=== PATIENT | female | born 1990 | race Caucasian/White ===

== ENCOUNTER 2016-12-04 06:00 | Inpatient (IN) ==
--- NOTE | 2016-12-04 06:42 | OB/GYN History & Physical ---
Date of Encounter: 12/04/16 Time of Encounter: 06:37 Assessment and Plan (1) 39 weeks gestation of Current visit: Yes Status: Acute Admit to labor and delivery for induction of labor Plan to start with cytotec and advance to pitocin Will monitor mother and fetus Anticipate spontaneous vaginal delivery (2) Non-stress test reactive Current visit: Yes Status: Acute (3) High risk , antepartum Current visit: Yes Status: Acute (4) History of pre-eclampsia Current visit: Yes Status: Acute BP within normal limits On ASA (5) GBS (group B Streptococcus carrier), +RV culture, currently Current visit: Yes Status: Acute Patient is allergic to amoxicillin culture and sensitivity showed resistance to clindamycin will treat with vancomycin q12h (6) Penicillin allergy Current visit: Yes Status: Acute See plan of care above (7) Large for gestational age fetus affecting mother, antepartum, third trimester, single gestation Current visit: Yes Status: Acute (8) Obesity affecting in third trimester, antepartum Current visit: Yes Status: Acute (9) Morbid obesity due to excess calories Current visit: Yes Status: Acute History of Present Illness Chief complaint: Induction of Labor HPI: Harriett Hudson is a 26 year-old G 2 P 1001 female at 39 weeks and 1 day who presents to labor and delivery for induction of labor. Patient reports good movement. She has been having intermittent contractions, sometimes regular, sometimes irregular. Patient denies vaginal bleeding and loss of fluid. Patient denies nausea, vomiting, diarrhea, shortness of breath, chest pain, headache, visual disturbance, LE edema, and upper abdominal pain. The patient's has been complicated by a history of preeclampsia for which she is taking low dose ASA, obesity, and GBS. She was last seen in the office by Dr. Martino on 11/28/2016. Cervix was 3-4 cm dilated and 70% effaced. Station was -2. Blood type: O+ Rubella and Varicella Immune Hep B negative GBS positive. Patient is penicillin allergic, and C+S showed clindamycin resistance so prophylaxis will be with vancomycin. All other serologies negative Past Med Surg Social Fam HX - Family History Mother Age: 45 Living Status: Still Living Hx Family Cardiac Disorders: Yes (htm) Hx Family Cancer: No Hx Family GI Disorders: No Hx Family Genitourinary Disorders: No Hx Family Endocrine Disorder: Yes (diabetic) Hx Family Musculoskeletal Disorders: Yes (neuropathy) Hx Family Neuromuscular Disorders: No Hx Family Neurologic Disorders: No Hx Family HEENT Disorders: No Hx Family Autoimmune Disorders: No Hx Family Reproductive Disorders: No Hx Family Psychosocial Disorders: No Hx Family Medical Disorders: No Obstetrical History - Pregnancies : 2 Para: 1 Term: 1 : 0 Ab's: 0 Livin Medications and Allergies Aspirin 81 mg PO DAILY 12/04/16 [History] Formula Tablet 1 tab PO DAILY 12/04/16 [History] 3 Allergy/AdvReac Type Severity Reaction Status Date / Time Amoxicillin Allergy Unknown See Verified 12/04/16 07:48 Comments Review of System OB - Cardiovascular Cardiovascular: no chest pain, no dyspnea, no edema - Respiratory Respiratory: no dyspnea - Gastrointestinal Gastrointestinal: no diarrhea, no nausea, no vomiting Exam - Constitutional Constitutional: well developed, well nourished, no acute distress, obese - HEENT HEENT: Normocephaly, Mucus Membranes Moist - Neck Neck exam: trachea midline - Lungs Respiratory exam: CTAB - Cardiovascular Cardiovascular exam: RRR, +S1, +S2 - Abdomen Abdomen: Present: gravid, non tender - Extremities Extremities exam: normal inspection Deep Tendon Reflex Grade: 2+ Normal - Uterus Uterus exam: Present: normal size Results Result Diagrams: 12/04/16 07:22 All other labs normal. - VTE Reasons for not Prescribing Prophylaxis: Treatment not Indicated - Low risk for VTE - Attending Attestation I examined this patient and my medical decision-making was reviewed with the Resident Physician. I agree with the documented findings, disposition and treatment plan as described except to the extent set forth below.
[2016-12-04] MEDS ORDERED: Ondansetron 4 MG/2 ML VIAL IVP PRN (06:52)
[2016-12-04] MEDS ORDERED: Naloxone 0.4 MG/ML INJ IVP PRN (06:52)
[2016-12-04] MEDS ORDERED: Metoclopramide 10 MG/2 ML VIAL IVP PRN (06:52)
[2016-12-04] MEDS ORDERED: Famotidine 20 MG/2 ML VIAL IVP PRN (06:52)
[2016-12-04] MEDS ORDERED: miSOPROStol 25 MCG TABLET PO ONE (06:54)
[2016-12-04 07:29] LABS: Basophils % 0.2 %; Eosinophils # 0.1 K/mcL (0.0-0.6); Eosinophils % 0.8 %; Hematocrit 37.6 % (35.3-44.9); Hemoglobin 12.9 g/dL (11.5-15.4); Immature Granulocytes % 0.4 % (0-4); Lymphocytes # 2.3 K/mcL (0.6-4.6); Lymphocytes % 21.6 %; Mean Corpuscular HGB Conc 34.3 g/dL (31.6-35.5); Mean Corpuscular Hemoglobin 29.7 pg (28.0-33.3); Mean Corpuscular Volume 86.6 fL (83.0-100.0); Mean Platelet Volume 9.7 fL (9.4-12.4); Monocytes # 0.8 K/mcL (0.0-1.3); Neutrophils # 7.3 K/mcL (1.6-8.9); Platelet Count 248 K/mcL (140-400); Red Blood Count 4.34 M/mcL (3.82-4.97); Red Cell Distribution Width 13.8 % (11.5-14.5)
[2016-12-04 07:37] LABS: Amphetamine Screen,Urine Negative ng/mL (Cutoff=1000); Barbiturate Screen,Urine Negative ng/mL (Cutoff=200); Benzodiazepines Screen,Urine Negative ng/mL (Cutoff=200); Cannabinoid Screen,Urine Negative ng/mL (Cutoff = 50); Cocaine Screen,Urine Negative ng/mL (Cutoff= 300); Opiate Screen,Urine Negative ng/mL (Cutoff=300); Phencyclidine Screen,Urine Negative ng/mL (Cutoff=25)
[2016-12-04] MEDS ORDERED: Vancomycin 1,500 MG in D5% in Water 250 ML IVPB SCH (07:40)
[2016-12-04] MEDS: Ringers Solution, Lactated 1,000 ML IVC SCH ×3 (08:13→13:05)
[2016-12-04] MEDS ORDERED: *HR* Nalbuphine 20 MG/ML AMPUL IVP PRN (10:45)
[2016-12-04] MEDS ORDERED: *HR* Nalbuphine 20 MG/ML AMPUL ONE (10:47)
[2016-12-04] MEDS ORDERED: *HR* FentaNYL (PF) 100 MCG/2 ML VIAL ONE (10:55)
[2016-12-04] MEDS ORDERED: Bupivacaine-MPF 0.25% 10 ML VIAL ONE (10:55)
[2016-12-04] MEDS ORDERED: Epidural Premix (fent/bupiv) 110 ML EP ONE (10:56)
--- NOTE | 2016-12-04 10:57 | OB Labor Progress Note ---
Date of Encounter: 12/04/16 Time of Encounter: 10:45 Labor Progress Note - Subjective Subjective: The patient is here for induction of labor. She has had by mouth Cytotec. She is reporting the contractions are becoming uncomfortable - Vital Signs Vital Signs: Afebrile, vital signs stable - Cervix Cervix: 4-5 cm/80%/-1, vertex with bulging bag of water - Heart Tones Heart Tones: 130s baseline, CAT 1 - [place]: Irregular and difficult to monitor on external toco - Interventions Interventions: 39 week gestation of , induction of labor - Plan Plan: Amniotomy with clear fluid seen, IUPC placed. Pain management per patient request. Anticipate vaginal delivery
--- NOTE | 2016-12-04 10:59 | History & Physical Report ---
Date of Encounter: 12/04/16 Time of Encounter: 10:59 24 Hour HP Update - Instructions Instructions: If the History and Physical is less than 30 days old and was completed prior to A.M. admission and or procedure and has NOT been updated on calendar day of procedure please complete this update prior to performing procedure. - Update Patient reports changes in Medical Condition: No Changes in examination, assessment, or condition: No Changes in Medication: No Preop tests/diagnostics Reviewed: Yes Surgery Remains Indicated: Yes Consent for Planned Operative Procedure(s) Verified: Yes - Pre-Operative Checklist Preoperative Checklist Indicated: No
[2016-12-04] MEDS ORDERED: Terbutaline 1 MG/ML VIAL SQ ONE (12:12)
[2016-12-04] MEDS ORDERED: 0.9 % Sodium Chloride 1,000 ML ONE (12:16)
--- NOTE | 2016-12-04 12:24 | Anesthesia Evaluation PreOp ---
Date of Encounter: 12/04/16 Time of Encounter: 10:59 - Past History Planned Operation: SALE[facility] Cardiac History: Denies any Significant Hx Pulmonary History: Denies Any Significant HX FLOOR COVERING [employer]INTER History: Denies Any Significant HX Other Medical History: Denies Any Significant HX Anesthesia History: No Prior Anesthetic Complications, Past Anesthesia (SALEEM x 1 ; denies personal h/o RA or GA complications; denies family h/o GA complications ) : Yes Test: Positive Alcohol Use: none Drug use: none Medications and Allergies Aspirin 81 mg PO DAILY 12/04/16 [History] Formula Tablet 1 tab PO DAILY 12/04/16 [History] 3 Allergy/AdvReac Type Severity Reaction Status Date / Time Amoxicillin Allergy Unknown See Verified 12/04/16 07:48 Comments - Meds/Allergy Pre-op Review Medications Reviewed: Yes Allergies Reviewed: Yes Beta Blockers on Current Med List: No Anesthesia Results - Labs 12/04/16 07:22 Anesthesia Exam 113/58, HR86, RR22 O2 Sat Height 1.7 m Weight 137.5 kg Vital Signs Pulse Resp BP 86 16 113/58 12/04/16 06:53 12/04/16 06:53 12/04/16 06:53 NPO (# of Hours): solids > 2 hours ago Pain Scale: 10 Pain Scale Used: Numeric (1 - 10) - HEENT Pupil (Motor): Pupils equal Mallampati: II Teeth: Normal Oral Opening: Greater than 3 - FLOOR COVERING [employer]INTER LOC: Oriented [employer]LO[employer]ING [employer] Motor: Normal RUE, Normal LUE, Normal RLE, Normal LLE, Normal Face [employer] Sensory: Normal: RUE, LUE, RLE, LLE, Face - Cardiac Rhythm: Regular Murmur: None - Pulmonary Breath Sounds: bilateral Clear Respiratory Effort: Symmetrical Anesthesia Assess/Plan ASA Score: 2 Modified Points Scale for Level of Consciousness: Anixous, agitated or restless Anesthetic Plan: Regional Autologous Blood: No Monitoring Plan: Standard Monitors
--- NOTE | 2016-12-04 12:27 | Anesthesia Procedures ---
Date of Encounter: 12/04/16 Time of Encounter: 12:26 Procedures: Anesthesia - Epidural/Spinal Patient ID/Chart reviewed: Yes Patient examined: Yes OB Eval: Gestational age: 39 weeks 1 day OB Eval: : 2 OB Eval: Hx Para: 1 OB Eval: Dilated at (cm): 5 OB Eval: Contractions: Non-stressed pattern Consent Obtained: Yes Supplemental Oxygen: None/Room Air Site Prep: Aseptic Technique, Sterile prep and drape, Povidone-Iodine 1% Patient position: upright Local Anesthetic: Lidocaine 1% Amount of Local Anesthetic used: 5 Touhy Needle Gauge: 18 Touhy Needle Depth (cm): 9 Catheter Depth at Skin (cm): 15 Test Dose (1.5% Lido + Epi): Volume given (mls): 5 Test Dose Result: Negative Loading Dose: 0.25% Marcaine (mls): 10 Loading Dose: Fentanyl (mcg): 100 Loading Dose Administered: Thru Catheter Infusion Med: 0.125% Bupivacaine w/ 2 mcg/ml Fentanyl Infusion Rate (mls/hr): [address]: Tegaderm, Tape Interspace Used: L3-L4 Loss of Resistance (DEVIN): Yes Blood: No CSF: No Paresthesia: No Vitals + FHT's: please see Nadya LINDSEY's electronic documentation
[2016-12-04] MEDS ORDERED: *HR* FentaNYL (PF) 100 MCG/2 ML VIAL EP ONE (12:28)
[2016-12-04] MEDS ORDERED: Bupivacaine-MPF 0.25% 10 ML VIAL EP ONE (12:28)
[2016-12-04] MEDS ORDERED: Epidural Premix (fent/bupiv) 110 ML EP SCH (12:30)
--- NOTE | 2016-12-04 12:41 | OB Labor Progress Note ---
Date of Encounter: 12/04/16 Time of Encounter: 12:39 Labor Progress Note - Subjective Subjective: Patient status post epidural without significant relief from contraction discomfort. She was unable to appreciate when she received an injection in her leg, any discomfort. Patient reported fluid loss when repositioning after epidural - Vital Signs Vital Signs: Afebrile, vital signs stable - Cervix Cervix: 5/90/-1, vertex - Heart Tones Heart Tones: 120s, early decelerations, accelerations present - [employer]: Contraction 70 to 100 mmHg every 1-2 minutes after initial 50 mcg of by mouth Cytotec at 0800. - Interventions Interventions: 39 week IUP for induction of labor with Cytotec, status post epidural - Plan Plan: Patient given 0.25 of subcutaneous terbutaline to space out and decrease her contractions. She has had an amnioinfusion of normal saline started to replace intrauterine fluids. Oxygen by mask has been given and she is in right lateral tilt. There is been a good response to the above measures. Nurse industrial production manager is contacting his anesthesia magazine supervisor to determine further steps to be taken to provide patient comfort. Continue close observation and monitoring. scalp electrode was also placed
[2016-12-04] MEDS ORDERED: Lidocaine/EPI 1:200k 2% PF 20 ML VIAL ONE (13:07)
--- NOTE | 2016-12-04 14:11 | Anesthesia Procedures ---
Date of Encounter: 12/04/16 Time of Encounter: 14:09 Procedures: Anesthesia - Epidural/Spinal Patient ID/Chart reviewed: Yes Patient examined: Yes OB Eval: Gestational age: 39 weeks 1 day OB Eval: : 2 OB Eval: Hx Para: 1 OB Eval: Dilated at (cm): 6 OB Eval: Contractions: Non-stressed pattern Consent Obtained: Yes Supplemental Oxygen: Mask Site Prep: Aseptic Technique, Sterile prep and drape, Povidone-Iodine 1% Patient position: upright Local Anesthetic: Lidocaine 1% Amount of Local Anesthetic used: 3 Touhy Needle Gauge: 18 Touhy Needle Depth (cm): 8 (in reality 8.5cm) Catheter Depth at Skin (cm): 18 Test Dose (1.5% Lido + Epi): Volume given (mls): 5 Test Dose Result: Negative Loading Dose: Other: 10mL of 2% lidocaine w/ epinephrine Loading Dose Administered: Thru Catheter Infusion Med: 0.125% Bupivacaine w/ 2 mcg/ml Fentanyl Infusion Rate (mls/hr): [address]: Tegaderm, Tape Interspace Used: L5-S1 Loss of Resistance (DEVIN): Yes Blood: No CSF: No Paresthesia: No Procedure: procedure performed by Dr. Bayron Balderas + FHT's: please see Nadya LINDSEY's electronic documentation
--- NOTE | 2016-12-04 14:17 | OB Labor Progress Note ---
Date of Encounter: 12/04/16 Time of Encounter: 14:14 Labor Progress Note - Subjective Subjective: Patient is status post epidural attempt 2, placed by Dr. Gary. The patient now has significant relief from contraction discomfort. She is resting comfortably at this time. - Vital Signs Vital Signs: Afebrile, VSS - Cervix Cervix: 8/100/0, vertex - Heart Tones Heart Tones: Baseline 120-125 Category 2 - [place]: 50-75 mmHg 2-3 minutes 230 [place] units - adequate labor - Interventions Interventions: 39 week IUP for induction of labor with cytotec, status post epidural - Plan Plan: Patient is now progressing nicely. Her pain is well managed currently. Not requiring O2 at this point. Will continue to closely monitor tracings for signs of distress Anticipate
[2016-12-04] MEDS ORDERED: Oxytocin 20 units/ LR 1000 mL 20 UNIT/1,000 ML BAG IVC ONE (16:03)
--- NOTE | 2016-12-04 16:42 | OB/GYN Procedure Note ---
Delivery - Delivery Date: 12/04/16 Provider: Erika Martino Intrapartum events: none Delivery induction: misoprostol Delivery augmentation: rupture of membranes Delivery monitor: external FHT, external uterine, internal FHT, internal uterine Anesthesia: intravenous, epidural Estimated Blood Loss: 200 - (s) Infant A Delivery Date: 12/04/16 Delivery Time: 16:02 Presentation: vertex Position: JUSTIN Route of delivery: Gender: Male Viability: Viable Pounds: 8 Ounces: 4 Weight Gram: 3.74 kg at 1 minute: 8 at 5 mins: 9 Shoulder Dystocia: not encountered Specimens collected: cord blood Placenta: spontaneous, uterine exploration Cord: 3 umbilical vessels - Repair Episiotomy: none Laceration Description: Vaginal - Complications Delivery complications: none Delivery comments: The patient was complete and pushing with epidural anesthesia with a spontaneous vaginal delivery in the JUSTIN position of a vigorous male infant weighing 8lbs. 4oz. with Apgars of 8 at 1 minute and 9 at 5 minutes. was placed on the maternal abdomen. The cord was clamped and cut after pulsations ceased. Cord blood obtained. The placenta was delivered spontaneous and intact. The uterus was inspected digitally and no retained products conception appreciated. A vaginal midline laceration was repaired with 3-0 Vicryl [id number] fashion. Estimated blood loss 200 mL, complications none - Disposition Mom disposition: stable in LDR disposition: stable in LDR
[2016-12-04] MEDS ORDERED: Rho Immune Globulin 1,500 UNIT SYRINGE IM PRN (17:31)
[2016-12-04] MEDS ORDERED: Measles/Mumps/Rubella Vacc 0.5 ML VIAL SQ PRN (17:31)
[2016-12-04] MEDS ORDERED: Acetaminophen 325 MG TABLET PO PRN (17:31)
[2016-12-04] MEDS ORDERED: Oxytocin 20 units/ LR 1000 mL 20 UNIT/1,000 ML BAG IVC SCH (17:31)
[2016-12-04] MEDS: Ibuprofen 600 MG TABLET PO SCH (17:38)
[2016-12-04] MEDS ORDERED: Vancomycin 1,000 MG in D5% in Water 250 ML IVPB SCH (18:00)
[2016-12-05] MEDS: Ibuprofen 600 MG TABLET PO SCH ×2 (04:20→13:49)
[2016-12-05 06:53] LABS: Basophils % 0.2 %; Eosinophils % 0.3 %; Hematocrit 32.8 % (35.3-44.9); Immature Granulocytes % 0.4 % (0-4); Lymphocytes # 1.7 K/mcL (0.6-4.6); Lymphocytes % 14.8 %; Mean Corpuscular HGB Conc 33.5 g/dL (31.6-35.5); Mean Corpuscular Hemoglobin 29.5 pg (28.0-33.3); Mean Corpuscular Volume 87.9 fL (83.0-100.0); Mean Platelet Volume 9.9 fL (9.4-12.4); Monocytes # 0.8 K/mcL (0.0-1.3); Monocytes % 6.8 %; Neutrophils # 8.8 K/mcL (1.6-8.9); Platelet Count 200 K/mcL (140-400); Red Blood Count 3.73 M/mcL (3.82-4.97); Red Cell Distribution Width 13.7 % (11.5-14.5); Segmented Neutrophils % 77.5 %
[2016-12-05 08:03] VITALS: BP 99/62
[2016-12-05] MEDS ORDERED: Prenatal Vit/FA 1 EACH TABLET PO SCH (09:00)
--- NOTE | 2016-12-05 09:05 | Discharge Summary ---
Date of Encounter: 12/05/16 Time of Encounter: 09:01 - Discharge Diagnosis (1) Spontaneous vaginal delivery Priority: Primary Status: Acute Comments: VSS, asymptomatic. Tolerating regular diet. Bottle feeding without difficulty. Voiding without difficulty. Pain well controlled with oral medications. Lochia light and without clots. No headaches, vision changes, or epigastric pain. Contraceptive management discussed. Wants to discuss with Dr. Martino at follow up appointment. D/C home today. (2) History of pre-eclampsia Priority: Secondary Status: Acute Comments: VSS, asymptomatic. Continue daily baby asa until 6 weeks . - Discharge Medications Prescriptions: Ibuprofen [Motrin] 600 mg PO Q6HR #30 tab Home Medications: Aspirin 81 mg PO DAILY 12/04/16 [History] Formula Tablet 1 tab PO DAILY 12/04/16 [History] Acetaminophen [Tylenol] 650 mg PO Q6HR PRN tab 12/05/16 [Rx] Docusate [Colace] 100 mg PO BID 12/05/16 [Rx] Ibuprofen [Motrin] 600 mg PO Q6HR #30 tab 12/05/16 [Rx] Allergies/Adverse Reactions: 3 Allergy/AdvReac Type Severity Reaction Status Date / Time Amoxicillin Allergy Unknown See Verified 12/04/16 07:48 Comments Data Procedures and tests throughout hospitalization: Laboratory Tests 12/04/16 12/04/16 12/05/16 07:15 07:22 06:14 WBC 10.5 11.3 H RBC 4.34 3.73 L Hgb 12.9 11.0 L D Hct 37.6 32.8 L MCV 86.6 87.9 MCH 29.7 29.5 MCHC 34.3 33.5 RDW 13.8 13.7 Plt Count 248 200 MPV 9.7 9.9 Immature Gran % 0.4 0.4 Seg Neutrophils % 69.0 77.5 Lymphocytes % 21.6 14.8 Monocytes % 8.0 6.8 Eosinophils % 0.8 0.3 Basophils % 0.2 0.2 Neutrophils # 7.3 8.8 Lymphocytes # 2.3 1.7 Monocytes # 0.8 0.8 Eosinophils # 0.1 0.0 Basophils # 0.0 0.0 Urine Opiates Screen Negative Ur Barbiturates Screen Negative Ur Phencyclidine Scrn Negative Ur Amphetamines Screen Negative U Benzodiazepines Scrn Negative Urine Cocaine Screen Negative U Marijuana (THC) Screen Negative Labs on day of discharge: Labs from last 24 hours 12/05/16 06:14 WBC 11.3 H RBC 3.73 L Hgb 11.0 L D Hct 32.8 L MCV 87.9 MCH 29.5 MCHC 33.5 RDW 13.7 Plt Count 200 MPV 9.9 Immature Gran % 0.4 Seg Neutrophils % 77.5 Lymphocytes % 14.8 Monocytes % 6.8 Eosinophils % 0.3 Basophils % 0.2 Neutrophils # 8.8 Lymphocytes # 1.7 Monocytes # 0.8 Eosinophils # 0.0 Basophils # 0.0 Date of admission: 12/04/16 06:00 Primary care physician: Eugenie Huerta CNP Consults: 12/04/16 17:31 Consult to Scada Engineer [CONS] Routine Comment: Vaginal delivery, consult needed Anticipated date of discharge: 12/05/16 - Patient Status Disposition: Home, Self-Care Condition: Good Functional capacity at discharge: independent ambulation Overall status at discharge: patient is progressing back to baseline - Discharge Instructions Follow Up With: Eugenie Huerta CNP [Primary Care Provider] - Erika Martino MD [Partnered Physician] - (Follow up 4 weeks vaginal delivery.) - Diet and Activity Activity: increase activity as tolerated Diet: regular diet Hospital Course Reason for admission: induction of labor Delivery: Episiotomy: none Laceration: vaginal side wall complications: perineal laceration Discharge diagnosis: IUP at term delivered [place] baby: male Time Attestation: Total time spent providing and/or coordinating discharge services: Time Spent: Less than 30 minutes Exam - Constitutional Vitals: Temp Pulse Resp BP Pulse Ox 97.8 F 78 16 99/62 98 12/05/16 07:30 12/05/16 07:30 12/05/16 07:30 12/05/16 07:30 12/05/16 03:35 General appearance IM: A&O X 3 - Respiratory Respiratory exam: Present: CTAB - Cardiovascular Cardiovascular exam IM: Present: +S1, +S2 - GI/Abdominal GI/Abdominal exam IM: normal bowel sounds - Rectal Rectal exam: deferred - Uterine Tone: Firm Uterus Position: 3 Fingers Below Umbilicus, Midline - Extremities Exam Extremities exam IM: Present: full ROM - Neurological Exam Neurological exam: alert, normal gait, oriented X3
== END 2016-12-05 15:00 | disposition home or self-care (01) | DRG 775 ==
LOC: 1NENULAB 06:00 → 1NENUOBS 18:32
PROVIDERS: ADMIT Obstetrics & Gynecology; ATTEND Obstetrics & Gynecology

== ENCOUNTER → 2021-05-13 04:18 | Observation (INO) ==
[2021-05-13 03:13] VITALS: BP 116/70; PULSE 102; TEMP 98.3
[2021-05-13 03:26] LABS: Bacteria,Urine Few per hpf (None-Few); Bilirubin,Urine Negative (Negative); Blood,Urine Large (Negative); Clarity,Urine Clear (Clear); Color,Urine Colorless (Yellow); Glucose,Urine (UA) Normal (Normal); Ketones,Urine Negative (Negative); Leukocyte Esterase,Urine Negative (Negative); Nitrite,Urine Negative (Negative); Protein,Urine Negative (Neg-Trace); RBC,Urine 0-3 per hpf (0-3); Specific Gravity,Urine 1.005 (1.010-1.025); Squamous Epithelial Cell,Urine Few per hpf (None-Few); Urobilinogen,Urine Normal (Normal); WBC,Urine 0-3 per hpf (0-3)
== END | disposition home or self-care (01) ==
LOC: 1NENULAB
PROVIDERS: ADMIT Obstetrics & Gynecology; ATTEND Obstetrics & Gynecology

== ENCOUNTER → 2021-07-01 09:50 | Observation (INO) ==
[2021-07-01 07:58] LABS: Basophils % 0.2 %; Eosinophils # 0.1 K/mcL (0.0-0.6); Eosinophils % 0.8 %; Hematocrit 32.9 % (35.3-44.9); Hemoglobin 11.1 g/dL (11.5-15.4); Immature Granulocytes % 0.3 % (0-4); Lymphocytes # 2.1 K/mcL (0.6-4.6); Lymphocytes % 22.1 %; Mean Corpuscular HGB Conc 33.7 g/dL (31.6-35.5); Mean Corpuscular Hemoglobin 30.4 pg (28.0-33.3); Mean Corpuscular Volume 90.1 fL (83.0-100.0); Mean Platelet Volume 9.4 fL (9.4-12.4); Monocytes # 0.9 K/mcL (0.0-1.3); Monocytes % 8.9 %; Neutrophils # 6.5 K/mcL (1.6-8.9); Platelet Count 251 K/mcL (140-400); Red Blood Count 3.65 M/mcL (3.82-4.97); Red Cell Distribution Width 14.1 % (11.5-14.5); Segmented Neutrophils % 67.7 %; White Blood Count 9.6 K/mcL (4.3-11.1)
[2021-07-01 08:18] LABS: Bilirubin,Urine Negative (Negative); Blood,Urine Large (Negative); Color,Urine Red (Yellow); Glucose,Urine (UA) Normal (Normal); Ketones,Urine Negative (Negative); Leukocyte Esterase,Urine Negative (Negative); Nitrite,Urine Negative (Negative); Protein,Urine 100 mg/dL (Neg-Trace); Specific Gravity,Urine 1.015 (1.010-1.025); Urobilinogen,Urine Normal (Normal)
[2021-07-01 08:24] LABS: Clarity,Urine Slightly Hazy (Clear)
[2021-07-01 08:29] LABS: Amorphous Sediment,Urine Few per hpf (None-Few); Bacteria,Urine Few per hpf (None-Few); RBC,Urine TNTC per hpf (0-3); Squamous Epithelial Cell,Urine Few per hpf (None-Few)
[~2021-07-01 09:50] MED LIST: Betamethasone Acet/SodPhos 30 MG/5 ML VIAL IM SCH; Clindamycin 900 MG/50 ML 900 MG/50 ML IV.SOLN IVPB ONE; Magnesium Sulf 20 gm/SW 500mL 20 GM/500 ML IV.SOLN IVC SCH; Magnesium Sulf 20 gm/SW 500mL 4 GM/100 ML BAG IV ONE; Ringers Solution, Lactated 1,000 ML ONE
== END | disposition short-term general hospital (02) ==
LOC: 1NENULAB
PROVIDERS: ADMIT Obstetrics & Gynecology; ATTEND Obstetrics & Gynecology